=== PATIENT | male | born 1940 | race Caucasian/White ===

== ENCOUNTER 2024-04-15 18:03 | Inpatient (IN) | payer MEDICARE ==
[2024-04-15] MEDS ORDERED: NOREPINEPHRINE 8 MG/250 ML-D5W 250 ML ONE (18:11)
[2024-04-15 18:35] LABS: Base Excess -10.7 mEq/L (-2.0 to +3.0); Calcium, Ionized (venous) 1.04 mmol/L (1.16-1.32); Chloride (VBG) 106 mmol/L (98-106); Hematocrit-VBG 40 % (42.0-52.0); Hemoglobin (Hb) 13.6 g/dL (12.6-17.4); Sodium 136 mmol/L (133-146); pH (venous) 7.293 (7.32-7.43)
[2024-04-15 18:39] LABS: Actual Bicarbonate (HCO3v) 14.5 mEq/L (22-28)
[2024-04-15 19:09] LABS: ALT (SGPT) 55 U/L (Less than 45); AST (SGOT) 160 U/L (11-34); Albumin 3.1 g/dL (3.1-4.5); Alkaline Phosphatase 72 U/L (40-110); Anion Gap 17 mmol/L (10-20); BUN (Urea Nitrogen) 25 mg/dL (8.4-25.7); Bilirubin, Total 0.8 mg/dL (0.3-1.2); Calc. Creatinine Clearance 0 mL/min (70-130); Calcium 7.9 mg/dL (7.8-10.44); Carbon Dioxide 12 mmol/L (23-31); Chloride 111 mmol/L (98-107); Estimated GFR 39; Globulin 2.5 g/dL (2.4-3.5); Glucose 204 mg/dL (83-110); Potassium 3.9 mmol/L (3.5-5.1); Protein, Total 5.6 g/dL (5.8-8.1); Sodium 136 mmol/L (136-145)
[2024-04-15 19:10] LABS: Troponin I 0.149 ng/mL (< 0.028)
[2024-04-15 19:14] LABS: Band 39 % (5-11); Burr Cells MODERATE= 6-15 cells HPF (0-1); Elliptocytes SLIGHT = 2-5 cells HPF (0-1); Hematocrit 37.8 % (42.0-52.0); Hemoglobin 12.4 g/dL (14.0-18.0); Large Platelets 1.9 % (0-5); Lymphocytes 4 % (21-51); Mean Corpuscular HGB CONC 32.8 g/dL (32.0-36.0); Mean Corpuscular Hemoglobin 30.8 pg (27.0-31.0); Mean Corpuscular Volume 93.8 fL (78.0-98.0); Mean Platelet Volume 9.9 fL (7.4-10.4); Monocytes 4 % (0-10); Neutrophil 52 % (42-75); Platelet Adequacy Comment Platelets Normal; Platelet Count 178 10x3/uL (130-400); Poikilocytosis SLIGHT = 6-15 cells HPF (0-5); RBC Distribution Width 14.2 % (11.5-14.5); Reactive Lymphocytes 2 % (0-10); Red Blood Cell (RBC) Count 4.03 mill/uL (4.70-6.10); Smudge Cells 11.7 %
[2024-04-15] MEDS ORDERED: Ondansetron PF 4 MG/2 ML Vial IVP PRN (19:16)
[2024-04-15] MEDS ORDERED: Acetaminophen 325 MG TAB PO PRN (19:16)
[2024-04-15] MEDS ORDERED: Glucagon 1 MG/ML KIT IM PRN (19:16)
[2024-04-15] MEDS ORDERED: Calcium Carbonate 500 MG ChewTAB PO PRN (19:16)
[2024-04-15] MEDS ORDERED: traMADol HCl 50 MG TAB PO PRN (19:16)
[2024-04-15] MEDS ORDERED: Dextrose 50% Abboject 50 ML SYRINGE SLOW IVP PRN (19:16)
[2024-04-15] MEDS ORDERED: Dextrose 5% in Water 1,000 ML IV PRN (19:16)
[2024-04-15] MEDS ORDERED: NOREPINEPHRINE 8 MG/250 ML-D5W 250 ML IVPB SCH (19:30)
[2024-04-15 22:15] LABS: Anion Gap 17 mmol/L (10-20); BUN (Urea Nitrogen) 25 mg/dL (8.4-25.7); Calc. Creatinine Clearance 0 mL/min (70-130); Calcium 8.3 mg/dL (7.8-10.44); Carbon Dioxide 14 mmol/L (23-31); Chloride 110 mmol/L (98-107); Estimated GFR 41; Glucose 252 mg/dL (83-110); Potassium 4.4 mmol/L (3.5-5.1); Sodium 137 mmol/L (136-145)
[2024-04-15] MEDS: Lactated Ringer's 1,000 ML IV SCH (23:04)
[2024-04-15] MEDS: Sodium Chloride 0.9% 500 ML IV SCH (23:05)
[2024-04-15 23:17] LABS: Legionella Urinary Ag Negative (Negative); Strep pneumo Urine Ag NEGATIVE (NEGATIVE)
[2024-04-15 23:29] LABS: Analyzer IN Cardio ER; Base Excess -11.9 mEq/L (-2.0 to +3.0); Chloride (VBG) 106 mmol/L (98-106); Hematocrit-VBG 41 % (42.0-52.0); Hemoglobin (Hb) 13.9 g/dL (12.6-17.4); Potassium (VBG) 4.33 mmol/L (3.70-5.30); Sodium 137 mmol/L (133-146); pH (venous) 7.222 (7.32-7.43)
[2024-04-15 23:31] LABS: Actual Bicarbonate (HCO3v) 14.9 mEq/L (22-28)
[2024-04-16] MEDS: Vancomycin 1 GM in Premix 1 BAG IVPB SCH ×2 (00:38→16:21)
[2024-04-16] MEDS: Sodium Bicarbonate Tab 325 MG TAB PO SCH (00:44)
[2024-04-16] MEDS: Oseltamivir 75 MG CAP PO SCH (00:44)
[2024-04-16] MEDS: Insulin Lispro 100 UNIT/ML 10 ML VIAL SC PRN (01:05)
[2024-04-16] MEDS: Cefepime 2 GM in Sodium Chloride 0.9% 100 ML IVPB SCH (05:07)
[2024-04-16 07:46] LABS: Hematocrit 36.8 % (42.0-52.0); Hemoglobin 12.1 g/dL (14.0-18.0); Mean Corpuscular HGB CONC 32.9 g/dL (32.0-36.0); Mean Corpuscular Hemoglobin 31.3 pg (27.0-31.0); Mean Corpuscular Volume 95.1 fL (78.0-98.0); Mean Platelet Volume 9.8 fL (7.4-10.4); Platelet Count 171 10x3/uL (130-400); RBC Distribution Width 14.6 % (11.5-14.5); Red Blood Cell (RBC) Count 3.87 mill/uL (4.70-6.10)
[2024-04-16 08:03] LABS: Vancomycin, Random 17.4 ug/mL (See Comment)
[2024-04-16 08:05] LABS: Lactic Acid 2.01 mmol/L (0.50-2.20)
[2024-04-16 08:07] LABS: ALT (SGPT) 56 U/L (Less than 45); AST (SGOT) 148 U/L (11-34); Alkaline Phosphatase 62 U/L (40-110); Anion Gap 15 mmol/L (10-20); Anisocytosis SLIGHT = 6-15 cells HPF (0-5); BUN (Urea Nitrogen) 24 mg/dL (8.4-25.7); Band 20 % (5-11); Bilirubin, Total 0.8 mg/dL (0.3-1.2); Burr Cells SLIGHT = 2-5 cells HPF (0-1); CK (CPK) 4164 U/L (30-200); Calc. Creatinine Clearance 48 mL/min (70-130); Calcium 8.4 mg/dL (7.8-10.44); Carbon Dioxide 12 mmol/L (23-31); Chloride 113 mmol/L (98-107); Estimated GFR 45; Globulin 2.7 g/dL (2.4-3.5); Glucose 158 mg/dL (83-110); Lymphocytes 8 % (21-51); Metamyelocyte 1 % (0-0); Neutrophil 71 % (42-75); Platelet Adequacy Comment Platelets Normal; Poikilocytosis SLIGHT = 6-15 cells HPF (0-5); Polychromasia SLIGHT = 2-3 cells HPF (0-2); Potassium 4.4 mmol/L (3.5-5.1); Protein, Total 5.7 g/dL (5.8-8.1); Sodium 136 mmol/L (136-145)
[2024-04-16 08:08] LABS: Troponin I 0.094 ng/mL (< 0.028)
[2024-04-16 08:19] LABS: CRP,High Sensitivity (Inhouse) 24.11 mg/dL (< or = 0.5)
[2024-04-16] MEDS ORDERED: Vancomycin 1 GM in Premix 1 BAG IVPB SCH (09:00)
[2024-04-16] MEDS: Pantoprazole 40 MG VIAL IVP SCH (09:36)
[2024-04-16] MEDS: Oseltamivir 6 MG/ML ORAL SUSP PO SCH (09:36)
[2024-04-16] MEDS: Enoxaparin 40 MG (0.4 mL) SYRINGE SC SCH (09:37)
[2024-04-16] MEDS: Aspirin 81 mg Enteric Coated Tablet PO SCH (09:38)
[2024-04-16] MEDS: Azithromycin 500 MG in Sodium Chloride 0.9% 250 ML 250 ML IVPB SCH (09:38)
[2024-04-16] MEDS: Allopurinol 100 MG TAB PO SCH (09:38)
[2024-04-16] MEDS: methylPREDNISolone Sod Succ 40 MG VIAL IVP SCH ×2 (12:05→19:14)
[2024-04-16] MEDS: Ipratropium/Albuterol 3 ML NEB NEB PRN (19:06)
[2024-04-16] MEDS: Budesonide 0.5 MG/2 ML NEB INH SCH (19:07)
[2024-04-16] MEDS: Insulin Glargine 30 UNITS/0.3 ML VIAL SC SCH (20:42)
[2024-04-17 04:31] LABS: Hematocrit 32.7 % (42.0-52.0); Hemoglobin 11.7 g/dL (14.0-18.0); Mean Corpuscular HGB CONC 35.8 g/dL (32.0-36.0); Mean Corpuscular Hemoglobin 31.5 pg (27.0-31.0); Mean Corpuscular Volume 88.1 fL (78.0-98.0); Mean Platelet Volume 10.4 fL (7.4-10.4); Platelet Count 185 10x3/uL (130-400); RBC Distribution Width 14.3 % (11.5-14.5); Red Blood Cell (RBC) Count 3.71 mill/uL (4.70-6.10)
[2024-04-17 04:57] LABS: Vancomycin, Random 17.6 ug/mL (See Comment)
[2024-04-17 05:01] LABS: ALT (SGPT) 54 U/L (Less than 45); AST (SGOT) 117 U/L (11-34); Albumin 2.9 g/dL (3.1-4.5); Alkaline Phosphatase 67 U/L (40-110); Anion Gap 15 mmol/L (10-20); Anisocytosis SLIGHT = 6-15 cells HPF (0-5); BUN (Urea Nitrogen) 28 mg/dL (8.4-25.7); Band 11 % (5-11); CK (CPK) 1947 U/L (30-200); Calc. Creatinine Clearance 47 mL/min (70-130); Calcium 8.9 mg/dL (7.8-10.44); Carbon Dioxide 15 mmol/L (23-31); Chloride 111 mmol/L (98-107); Estimated GFR 43; Globulin 2.8 g/dL (2.4-3.5); Glucose 156 mg/dL (83-110); Hypochromia SLIGHT = 6-15 cells HPF (0-5); Lymphocytes 6 % (21-51); Monocytes 2 % (0-10); Neutrophil 81 % (42-75); Platelet Adequacy Comment Platelets Normal; Poikilocytosis SLIGHT = 6-15 cells HPF (0-5); Polychromasia SLIGHT = 2-3 cells HPF (0-2); Protein, Total 5.7 g/dL (5.8-8.1); Sodium 137 mmol/L (136-145)
[2024-04-17 11:26] LABS: Campy jejuni + coli by PCR Negative (Negative); STEC Shiga Toxin 1+2 Negative (Negative); Salmonella spp. by PCR Negative (Negative); Shigella spp + EIEC by PCR Negative (Negative)
[2024-04-17] MEDS ORDERED: Vancomycin 1 GM in Premix 1 BAG IVPB SCH (16:00)
[2024-04-18 04:39] LABS: #Basophils Less than 0.03 10x3/uL (0.0-0.2); #Eosinophils Less than 0.03 10x3/uL (0.0-0.7); %Basophils 0.1 % (0.0-1.0); %Monocytes 3.5 % (0.0-10.0); %Neutrophils 91.8 % (42.0-75.0); Hematocrit 34.6 % (42.0-52.0); Hemoglobin 12.3 g/dL (14.0-18.0); Mean Corpuscular HGB CONC 35.5 g/dL (32.0-36.0); Mean Corpuscular Hemoglobin 31.3 pg (27.0-31.0); Mean Platelet Volume 10.6 fL (7.4-10.4); Platelet Count 243 10x3/uL (130-400); RBC Distribution Width 14.5 % (11.5-14.5); Red Blood Cell (RBC) Count 3.93 mill/uL (4.70-6.10)
[2024-04-18 04:50] LABS: ALT (SGPT) 54 U/L (Less than 45); AST (SGOT) 72 U/L (11-34); Albumin 2.9 g/dL (3.1-4.5); Alkaline Phosphatase 74 U/L (40-110); Anion Gap 15 mmol/L (10-20); BUN (Urea Nitrogen) 27 mg/dL (8.4-25.7); CK (CPK) 628 U/L (30-200); Calc. Creatinine Clearance 56 mL/min (70-130); Calcium 9.2 mg/dL (7.8-10.44); Carbon Dioxide 18 mmol/L (23-31); Chloride 110 mmol/L (98-107); Estimated GFR 54; Glucose 188 mg/dL (83-110); Potassium 3.8 mmol/L (3.5-5.1); Protein, Total 5.9 g/dL (5.8-8.1); Sodium 139 mmol/L (136-145)
[2024-04-18] MEDS: Pantoprazole 40 MG DR.TAB PO SCH (08:25)
[2024-04-18] MEDS: Guaifenesin DM 100-10/5 ML UDCUP PO PRN (21:07)
[2024-04-19 06:16] LABS: #Basophils Less than 0.03 10x3/uL (0.0-0.2); #Eosinophils Less than 0.03 10x3/uL (0.0-0.7); %Basophils 0.1 % (0.0-1.0); %Monocytes 4.8 % (0.0-10.0); %Neutrophils 88.6 % (42.0-75.0); Hematocrit 34.9 % (42.0-52.0); Mean Corpuscular HGB CONC 34.4 g/dL (32.0-36.0); Mean Corpuscular Hemoglobin 30.9 pg (27.0-31.0); Mean Corpuscular Volume 89.9 fL (78.0-98.0); Mean Platelet Volume 10.1 fL (7.4-10.4); Platelet Count 275 10x3/uL (130-400); RBC Distribution Width 14.4 % (11.5-14.5); Red Blood Cell (RBC) Count 3.88 mill/uL (4.70-6.10)
[2024-04-19 06:29] LABS: Anion Gap 14 mmol/L (10-20); BUN (Urea Nitrogen) 34 mg/dL (8.4-25.7); Calc. Creatinine Clearance 63 mL/min (70-130); Calcium 9.2 mg/dL (7.8-10.44); Carbon Dioxide 21 mmol/L (23-31); Chloride 107 mmol/L (98-107); Estimated GFR 63; Glucose 221 mg/dL (83-110); Sodium 138 mmol/L (136-145)
[2024-04-19] MEDS: Insulin Lispro 100 UNIT/ML 10 ML VIAL SC PRN (20:58)
[2024-04-20 04:40] LABS: Hemoglobin A1c 6.5 % (4.0-6.0)
[2024-04-20] MEDS: methylPREDNISolone Sod Succ 40 MG VIAL IVP SCH (20:36)
[2024-04-21] MEDS: Tamsulosin HCl 0.4 MG CAP PO SCH (14:29)
[2024-04-21] MEDS: Apixaban 5 MG TAB PO SCH (20:59)
[2024-04-21] MEDS: Insulin Lispro 100 UNIT/ML 10 ML VIAL SC PRN (20:59)
[2024-04-21] MEDS ORDERED: Enoxaparin 80 MG (0.8 mL) SYRINGE SC SCH (21:00)
[2024-04-22 05:11] LABS: Hematocrit 35.2 % (42.0-52.0); Hemoglobin 12.2 g/dL (14.0-18.0); Mean Corpuscular HGB CONC 34.7 g/dL (32.0-36.0); Mean Corpuscular Hemoglobin 31.1 pg (27.0-31.0); Mean Corpuscular Volume 89.8 fL (78.0-98.0); Mean Platelet Volume 10.5 fL (7.4-10.4); Platelet Count 325 10x3/uL (130-400); RBC Distribution Width 14.2 % (11.5-14.5); Red Blood Cell (RBC) Count 3.92 mill/uL (4.70-6.10)
[2024-04-22 05:44] LABS: Anion Gap 16 mmol/L (10-20); BUN (Urea Nitrogen) 34 mg/dL (8.4-25.7); Calc. Creatinine Clearance 67 mL/min (70-130); Calcium 9.6 mg/dL (7.8-10.44); Carbon Dioxide 26 mmol/L (23-31); Chloride 104 mmol/L (98-107); Estimated GFR 70; Glucose 225 mg/dL (83-110); Potassium 4.9 mmol/L (3.5-5.1); Sodium 141 mmol/L (136-145)
[2024-04-22] MEDS: Tamsulosin HCl 0.4 MG CAP PO SCH (08:54)
[2024-04-22] MEDS: methylPREDNISolone Sod Succ 40 MG VIAL IVP SCH (08:54)
[2024-04-22] MEDS: Polyethylene Glycol 3350 17 GM Packet PO SCH (10:19)
[2024-04-22] MEDS: Docusate 100 MG CAP PO SCH (10:19)
[2024-04-22 17:06] VITALS: BMI 27.6
[2024-04-22] MEDS: Polyethylene Glycol 3350 17 GM Packet PO PRN (20:30)
[2024-04-23] MEDS: Docusate 100 MG CAP PO PRN (09:07)
[2024-04-24] MEDS: Docusate 100 MG CAP PO SCH (10:49)
[2024-04-24] MEDS: Bisacodyl 10 MG SUPP PR SCH (10:49)
[2024-04-24] MEDS: Polyethylene Glycol 3350 17 GM Packet PO SCH (10:49)
[2024-04-25] MEDS: Bisacodyl 10 MG SUPP PR SCH (11:42)
[2024-04-26 05:47] VITALS: BMI 26.7
[2024-04-26 09:01] LABS: #Basophils Less than 0.03 10x3/uL (0.0-0.2); %Basophils 0.1 % (0.0-1.0); %Eosinophils 0.8 % (0.0-10.0); %Lymphocytes 9.9 % (21.0-51.0); %Monocytes 9.2 % (0.0-10.0); %Neutrophils 78.9 % (42.0-75.0); Hematocrit 40.8 % (42.0-52.0); Hemoglobin 13.8 g/dL (14.0-18.0); Mean Corpuscular HGB CONC 33.8 g/dL (32.0-36.0); Mean Corpuscular Hemoglobin 30.9 pg (27.0-31.0); Mean Corpuscular Volume 91.3 fL (78.0-98.0); Mean Platelet Volume 9.8 fL (7.4-10.4); Platelet Count 296 10x3/uL (130-400); RBC Distribution Width 14.2 % (11.5-14.5); Red Blood Cell (RBC) Count 4.47 mill/uL (4.70-6.10)
[2024-04-26 09:16] LABS: Anion Gap 13 mmol/L (10-20); BUN (Urea Nitrogen) 22 mg/dL (8.4-25.7); Calc. Creatinine Clearance 62 mL/min (70-130); Calcium 9.6 mg/dL (7.8-10.44); Carbon Dioxide 25 mmol/L (23-31); Chloride 103 mmol/L (98-107); Estimated GFR 67; Glucose 126 mg/dL (83-110); Potassium 4.4 mmol/L (3.5-5.1); Sodium 137 mmol/L (136-145)
[2024-04-26 12:46] VITALS: BP 123/66; TEMP 97.6
== END 2024-04-26 14:45 | DRG 871 ==
LOC: ERS 18:03 → CCU 19:25 → IMCU/EMU 04-16 19:17 → 2NO 04-21 22:03 → SURG B 04-25 18:33
PROVIDERS: ADMIT Student in an Organized Health Care Education/Training Program; ATTEND Internal Medicine
PROC: 5A09357 Assistance with Respiratory Ventilation, Less than 24 Consecutive Hours, Continuous Positive Airway Pressure (ICD-10-PCS; 2024-04-15)
PROC: 3E03329 Introduction of Other Anti-infective into Peripheral Vein, Percutaneous Approach (ICD-10-PCS; principal; 2024-04-16)
PROC: 5A0945A Assistance with Respiratory Ventilation, 24-96 Consecutive Hours, High Flow/Velocity Cannula (ICD-10-PCS; 2024-04-16)
DX: A41.89 Other specified sepsis (principal); J10.00 Influenza due to other identified influenza virus with unspecified type of pneumonia; R65.21 Severe sepsis with septic shock; J96.01 Acute respiratory failure with hypoxia; N17.9 Acute kidney failure, unspecified; M62.82 Rhabdomyolysis; I5A Non-ischemic myocardial injury (non-traumatic); G61.81 Chronic inflammatory demyelinating polyneuritis; E87.21 Acute metabolic acidosis; I48.92 Unspecified atrial flutter; I12.9 Hypertensive chronic kidney disease with stage 1 through stage 4 chronic kidney disease, or unspecified chronic kidney disease; E11.22 Type 2 diabetes mellitus with diabetic chronic kidney disease; N18.30 Chronic kidney disease, stage 3 unspecified; M10.9 Gout, unspecified; Z79.899 Other long term (current) drug therapy; Z98.890 Other specified postprocedural states; R74.01 Elevation of levels of liver transaminase levels; E78.00 Pure hypercholesterolemia, unspecified; I48.91 Unspecified atrial fibrillation; G47.33 Obstructive sleep apnea (adult) (pediatric)
CPT/HCPCS: 36415; 36416; 71045; 80048; 80053; 80202; 82010; 82533; 82550; 82805; 83036; 83605; 83880; 84145; 84484; 85025; 85027; 86141; 87081; 87449; 87505; 87899; 93005; 93010; 93306; 94660; 94760; 96365; 96366; J0456; J0692; J1650; J1815; J2470; J2919; J3370; J7030; J7050; J7120; J7620; J7626